=== PATIENT | male | born 1955 | race Caucasian/White ===

== ENCOUNTER 2016-08-16 08:10 | Day surgery (SDC) | payer OTHER ==
--- NOTE | ~2016-08-16 | EGD ---
EGD REPORT [facility] [address] [place] [address] NAME: WATSON MANRIQUEZ : 55 STATUS : REG [facility] [place] PAT#: [id number] AGE: 61 ADM/REG DATE : 08/16/16 MR#: [id number] REPORT SERV DATE: 08/16/16 DICTATED BY: DEREK LIU DATE: 08/16/16 REPORT STATUS : Draft TRANSCRIBED BY: [facility] DATE: 08/16/16 [facility] Patient Name: Watson Manriquez Date of : 1955 Attending MD: DEREK LIU MD Procedure Date No Time: 08/16/2016 Procedure: Colonoscopy Indications: High risk colon cancer surveillance: Personal history of non-advanced adenoma; last exam 2009. Patient Profile: Informed consent was obtained from the patient by me prior to the procedure. Risks, benefits, and alternatives were discussed including the risk of bleeding, perforation, infection, reaction to medicine, missed lesion, and cardiopulmonary complications. Referring MD: FRANK VALENZUELA MD Medicines: Monitored Anesthesia Care Complications: No immediate complications. Procedure: After I obtained informed consent, the scope was passed under direct vision. Throughout the procedure, the patient's blood pressure, pulse, and oxygen saturations were monitored continuously. The PCF [id number] was introduced through the anus and advanced to the cecum, identified by appendiceal orifice and ileocecal valve. The colon was long, tortuous, and redundant. The colonoscope was slowly withdrawn with careful examination all mucosal surfaces including specific attention around flexures and tip deflection behind folds; retroflexion performed in rectum. The colonoscopy was performed without difficulty. The patient tolerated the procedure well. The quality of the bowel preparation was adequate. The ileocecal valve, appendiceal orifice and rectum were photographed. Findings: A few small-mouthed diverticula were found in the sigmoid colon. Impression: - Diverticulosis in the sigmoid colon. Recommendation: - Patient has a contact number available for emergencies. The signs and symptoms of potential delayed complications were discussed with the patient. Return to normal activities tomorrow. Written discharge instructions were provided to the patient. - Regular diet. - Continue present medications. EGD REPORT [address] [address] NAME: WATSON MANRIQUEZ : 55 STATUS : REG [facility] PAT#: [id number] AGE: 61 ADM/REG DATE : 08/16/16 MR#: [id number] REPORT SERV DATE: 08/16/16 DICTATED BY: DEREK LIU. DATE: 08/16/16 REPORT STATUS : Draft TRANSCRIBED BY: [employer] DATE: 08/16/16 - Repeat colonoscopy in 5 years for surveillance--adult colonoscope with next exam. Procedure Code(s): --- Professional --- 54239, Colonoscopy, flexible, proximal to splenic flexure; diagnostic, with or without collection of specimen(s) by brushing or washing, with or without colon decompression (separate procedure) Diagnosis Code(s): --- Professional --- K57.30, Diverticulosis of large intestine without perforation or abscess without bleeding Z86.010, Personal history of colonic polyps CPT copyright 2013 [employer]. All rights reserved. The codes documented in this report are preliminary and upon mini shifter review may be revised to meet current compliance requirements. DEREK LIU MD 08/16/2016 9:14 AM This report has been signed electronically. Number of Addenda: 0 Note Initiated On: 08/16/2016 8:32 AM Scope Withdrawal Time 0 hours 13 minutes 17 seconds [address] [place] [address]
[~2016-08-16 08:10] MED LIST: FISH-EPA1000 MG PO; HALF81 PO; MULTIPLE VIT PO; NIASPAN500 PO; RESVERATROL PO; RISP1 PO
== END 2016-08-16 23:59 | disposition home or self-care (01) ==
LOC: DMU 08:10
PROVIDERS: Internal Medicine Gastroenterology
PROC: 0DJ08ZZ Inspection of Upper Intestinal Tract, Via Natural or Artificial Opening Endoscopic (ICD-10-PCS; principal; 2016-08-16 09:00)
DX: Z12.11 Encounter for screening for malignant neoplasm of colon (principal); I10 Essential (primary) hypertension; K57.30 Diverticulosis of large intestine without perforation or abscess without bleeding; Z86.010 Personal history of colon polyps; Z98.890 Other specified postprocedural states; Z79.82 Long term (current) use of aspirin